=== PATIENT | female | born 1995 | race Hispanic/Latino ===

== ENCOUNTER 2018-05-06 18:17 | Emergency (ER) | payer MEDICAID | END 2018-05-06 18:43 | disposition home or self-care (01) | LOC: EDH 18:17 | DX: O99.511 Diseases of the respiratory system complicating pregnancy, first trimester (principal); R05 Cough; Z3A.01 Less than 8 weeks gestation of pregnancy ==

== ENCOUNTER 2018-07-22 00:02 | Emergency (ER) | payer MEDICAID ==
[2018-07-22 01:00] LABS: BASOPHILS % (AUTO) 0.4 % (0.0-5.0); EOSINOPHILS % (AUTO) 0.1 % (0.0-8.0); HEMATOCRIT 31.6 % (36-48); LYMPHOCYTES % (AUTO) 9.2 % (21.0-51.0); MEAN CORPUSCULAR HEMOGLOBIN 22.1 pg (27.0-33.0); MEAN CORPUSCULAR HGB CONC 31.4 g/dL (32.0-36.0); MEAN CORPUSCULAR VOLUME 70.2 fL (80-100); MONOCYTES % (AUTO) 4.7 % (3.0-13.0); NEUTROPHILS % (AUTO) 85.6 % (40.0-77.0); NUCLEATED RED BLOOD CELLS 0.1 % (0.0-0.19); PLATELET COUNT (AUTO) 174 K/uL (130-400); RED BLOOD CELL COUNT(AUTO) 4.49 MIL/uL (4.00-5.50); RED CELL DISTRIBUTION WIDTH 16.7 % (11.0-15.5)
[2018-07-22 01:03] LABS: APPEARANCE,URINE Clear (CLEAR); BILIRUBIN,URINE Negative (NEGATIVE); COLOR,URINE Dark Yellow (YELLOW); GLUCOSE, URINE (UA) Negative (NEGATIVE); KETONES,URINE >=160 mg/dL (NEGATIVE); LEUKOCYTE ESTERASE ,URINE Small (NEGATIVE); NITRATE,URINE Negative (NEGATIVE); OCCULT BLOOD,URINE Negative (NEGATIVE); PH,URINE 5.5 (5.0-8.0); PROTEIN,URINE Negative (NEGATIVE)
[2018-07-22 01:13] LABS: CREATININE 0.6 mg/dL (0.5-1.5); POTASSIUM 3.6 mmol/L (3.5-5.1)
[2018-07-22 01:18] LABS: ALBUMIN 2.9 g/dL (3.5-5.0); BILIRUBIN,TOTAL 0.5 mg/dL (0.2-1.0); TOTAL PROTEIN, SERUM 7.6 g/dL (6.0-8.3)
[2018-07-22 01:28] LABS: BACTERIA,URINE Rare /HPF (None Seen); MUCUS,URINE Few LPF (None Seen); RBC,URINE None Seen /HPF (0-1); SQUAMOUS EPITHELIAL CELL,UR Moderate /HPF (0-2)
[2018-07-22 01:29] LABS: HCG,QUAL RESULT POSITIVE (NEGATIVE)
== END 2018-07-22 02:34 | disposition home or self-care (01) ==
LOC: EDH 00:02
DX: O23.42 Unspecified infection of urinary tract in pregnancy, second trimester (principal); R42 Dizziness and giddiness; Z3A.17 17 weeks gestation of pregnancy
CPT/HCPCS: 36415; 80053; 81001; 81025; 85025

== ENCOUNTER 2018-08-15 07:16 | Emergency (ER) | payer MEDICAID ==
[2018-08-15] MEDS ORDERED: CEPHALEXIN 500 MG CAPSULE ONE (07:59)
[2018-08-15] MEDS ORDERED: ACETAMINOPHEN 325 MG TAB ONE (07:59)
== END 2018-08-15 08:30 | disposition home or self-care (01) ==
LOC: EDH 07:16
DX: O26.892 Other specified pregnancy related conditions, second trimester (principal); H66.92 Otitis media, unspecified, left ear; Z79.899 Other long term (current) drug therapy; Z3A.21 21 weeks gestation of pregnancy

== ENCOUNTER 2023-11-06 16:01 | Emergency (ER) | payer MEDICAID, OTHER ==
[~2023-11-06] VITALS: Ht 152.4 cm; Wt 88.7 kg
[2023-11-06 16:16] VITALS: BP 139/92; PULSE 100; RESP 16
== END 2023-11-06 18:41 | disposition left against medical advice (07) ==
LOC: EDH 16:01
DX: R51.9 Headache, unspecified (principal); Z53.21 Procedure and treatment not carried out due to patient leaving prior to being seen by health care provider
CPT/HCPCS: 99281